=== PATIENT | female | born 1990 | race Caucasian/White ===

== ENCOUNTER 2017-06-25 12:24 | Emergency (ER) | payer OTHER ==
[~2017-06-25] VITALS: Ht 170.2 cm; Wt 78.0 kg
== END 2017-06-25 16:11 | disposition home or self-care (01) ==
LOC: ER 12:24
DX: J11.1 Influenza due to unidentified influenza virus with other respiratory manifestations (principal)

== ENCOUNTER → 2017-12-29 | Emergency (ER) | payer OTHER | END | disposition left against medical advice (07) | LOC: ER 20:35 | DX: Z53.20 Procedure and treatment not carried out because of patient's decision for unspecified reasons (principal) ==

== ENCOUNTER 2018-01-20 15:21 | Emergency (ER) | payer OTHER ==
[~2018-01-20] VITALS: Ht 170.2 cm; Wt 77.1 kg
== END 2018-01-20 20:09 | disposition home or self-care (01) ==
LOC: ER 15:21
DX: K59.09 Other constipation (principal); M62.830 Muscle spasm of back; M41.86 Other forms of scoliosis, lumbar region

== ENCOUNTER 2018-03-14 03:03 | Emergency (ER) | payer OTHER ==
[~2018-03-14] VITALS: Ht 170.2 cm; Wt 77.1 kg
== END 2018-03-14 12:57 | disposition home or self-care (01) ==
LOC: ER 03:03
DX: K59.09 Other constipation (principal); R10.31 Right lower quadrant pain

== ENCOUNTER → 2019-06-03 | Emergency (ER) | payer OTHER ==
[~2019-06-03] VITALS: Ht 170.2 cm; Wt 72.6 kg
[~2019-06-03] MED LIST: KETO10TA2 PO; PHENAGIL TABLE1 EACH PO
== END | disposition home or self-care (01) ==
LOC: ER 00:03
DX: R51 Headache (principal); J34.89 Other specified disorders of nose and nasal sinuses

== ENCOUNTER 2020-04-02 16:30 | Emergency (ER) | payer OTHER ==
[~2020-04-02] VITALS: Ht 170.2 cm; Wt 81.2 kg
== END 2020-04-02 20:20 | disposition home or self-care (01) ==
LOC: ER 16:30
DX: N83.292 Other ovarian cyst, left side (principal); R10.84 Generalized abdominal pain; R10.2 Pelvic and perineal pain

== ENCOUNTER 2020-06-13 14:58 | Emergency (ER) | payer OTHER ==
[~2020-06-13] VITALS: Ht 170.2 cm; Wt 77.1 kg
== END 2020-06-13 19:14 | disposition home or self-care (01) ==
LOC: ER 14:58
DX: R53.81 Other malaise (principal)

== ENCOUNTER 2020-10-04 00:09 | Emergency (ER) | payer OTHER ==
[~2020-10-04] VITALS: Ht 170.2 cm; Wt 81.6 kg
[2020-10-04] MEDS ORDERED: ALBUTEROL2.5 MG/3 M IH (03:16)
[2020-10-04] MEDS ORDERED: ZYNCOF 20-400120 ML PO (03:16)
[2020-10-04] MEDS ORDERED: SYMBICORT 16010.2 GM IH (03:16)
== END 2020-10-04 03:42 | disposition home or self-care (01) ==
LOC: ER 00:09
DX: J45.998 Other asthma (principal)

== ENCOUNTER 2021-01-15 16:45 | Emergency (ER) | payer OTHER ==
[~2021-01-15] VITALS: Ht 172.7 cm; Wt 95.3 kg
[~2021-01-15 16:45] MED LIST changes: +ALBUTEROL2.5 MG/3 M IH; +SYMBICORT 16010.2 GM IH; +ZYNCOF 20-400120 ML PO
[2021-01-15] MEDS ORDERED: PEPCID20 MG PO (19:45)
== END 2021-01-15 20:07 | disposition home or self-care (01) ==
LOC: ER 16:45
DX: K52.89 Other specified noninfective gastroenteritis and colitis (principal)

== ENCOUNTER 2021-02-01 18:58 | Emergency (ER) | payer OTHER ==
[~2021-02-01] VITALS: Ht 170.2 cm; Wt 72.6 kg
[~2021-02-01 18:58] MED LIST changes: +PEPCID20 MG PO
[2021-02-01] MEDS ORDERED: NORFLEX100MG PO (22:32)
[2021-02-01] MEDS ORDERED: DICLOFENAC SODI75 MG PO (22:32)
== END 2021-02-01 22:41 | disposition home or self-care (01) ==
LOC: ER 18:58
DX: M54.9 Dorsalgia, unspecified (principal)

== ENCOUNTER 2021-08-30 14:54 | Emergency (ER) | payer OTHER ==
[~2021-08-30] VITALS: Ht 170.2 cm; Wt 81.6 kg
[~2021-08-30 14:54] MED LIST changes: +DICLOFENAC SODI75 MG PO; +NORFLEX100MG PO
[2021-08-30] MEDS ORDERED: BUTALBIT-ACETA1 EACH PO (19:02)
== END 2021-08-30 19:30 | disposition home or self-care (01) ==
LOC: ER 14:54
DX: R51.9 Headache, unspecified (principal); R42 Dizziness and giddiness

== ENCOUNTER 2022-05-28 20:32 | Emergency (ER) | payer OTHER ==
[~2022-05-28] VITALS: Ht 170.2 cm; Wt 81.6 kg
[~2022-05-28 20:32] MED LIST changes: +BUTALBIT-ACETA1 EACH PO
== END 2022-05-28 22:19 | disposition home or self-care (01) ==
LOC: ER 20:32
DX: N93.8 Other specified abnormal uterine and vaginal bleeding (principal)